=== PATIENT | male | born 1990 | race American Indian/Alaskan Native ===

== ENCOUNTER 2017-03-19 04:32 | Emergency (ER) | payer OTHER ==
[2017-03-19 04:37] VITALS: BP 108/68
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
== END 2017-03-19 08:49 | disposition home or self-care (01) ==
LOC: ED 04:32
DX: S29.011A Strain of muscle and tendon of front wall of thorax, initial encounter (principal); S56.912A Strain of unspecified muscles, fascia and tendons at forearm level, left arm, initial encounter; V49.49XA Driver injured in collision with other motor vehicles in traffic accident, initial encounter; Y93.89 Activity, other specified; Y92.89 Other specified places as the place of occurrence of the external cause; Y99.8 Other external cause status
CPT/HCPCS: 71020